=== PATIENT | female | born 1980 | race American Indian/Alaskan Native ===

== ENCOUNTER 2018-11-04 14:55 | Emergency (ER) | payer MEDICAID ==
[~2018-11-04] VITALS: Ht 154.9 cm; Wt 75.6 kg
[2018-11-04 15:05] VITALS: BP 115/84
[2018-11-04] MEDS ORDERED: acetaminophen 325mg tablet PO ONE (15:30)
[2018-11-04] MEDS ORDERED: HYDR-3965 PO (16:21)
[2018-11-04] MEDS ORDERED: ONDA4TAB9 PO (16:21)
== END 2018-11-04 16:38 | disposition home or self-care (01) ==
LOC: ER 14:56
DX: S63.502A Unspecified sprain of left wrist, initial encounter (principal); R51 Headache; Z88.2 Allergy status to sulfonamides; X58.XXXA Exposure to other specified factors, initial encounter; Y93.89 Activity, other specified; Y92.89 Other specified places as the place of occurrence of the external cause; Y99.8 Other external cause status
CPT/HCPCS: 29125; 73110; 73130; 99283

== ENCOUNTER 2020-12-06 05:32 | Emergency (ER) | payer MEDICAID ==
[~2020-12-06] VITALS: Ht 157.5 cm; Wt 63.6 kg
[2020-12-06] MEDS ORDERED: TETanus/Pertussis (Acell)/Diphther VAC/PF (Tdap-Adult) 0.5ml syringe IMVAC ONE (06:10)
[2020-12-06] MEDS ORDERED: bacitracin 15gm ointment TP ONE (06:10)
[2020-12-06 06:45] VITALS: BP 128/86
[2020-12-06] MEDS ORDERED: LIDOcaine 1% W/epiNEPHrine 1:200,000 10ml vial ONE (08:00)
== END 2020-12-06 07:23 | disposition home or self-care (01) ==
LOC: ER 05:32
DX: S61.012A Laceration without foreign body of left thumb without damage to nail, initial encounter (principal); W31.89XA Contact with other specified machinery, initial encounter; Y93.G1 Activity, food preparation and clean up; Y92.89 Other specified places as the place of occurrence of the external cause; Y99.8 Other external cause status
CPT/HCPCS: 12001; 90471; 90715; 99283

== ENCOUNTER 2025-03-07 10:25 | Outpatient (CLI) | payer MEDICAID | END 2025-03-07 23:59 | disposition home or self-care (01) | LOC: RAD 10:25 | PROVIDERS: ATTEND Family Medicine | DX: M54.50 Low back pain, unspecified (principal) | CPT/HCPCS: 76770 ==